=== PATIENT | male | born 1955 | race African-American/Black ===

== ENCOUNTER 2023-08-15 05:40 | Day surgery (SDC) | payer OTHER ==
[2023-08-11 12:10] VITALS: BMI 31.0
[2023-08-15] MEDS ORDERED: PROPOFOL 20 ML ONE ×2 (08:22→08:33)
[2023-08-15] MEDS ORDERED: Lidocaine 1% PF 5 ML VIAL ONE (08:33)
== END 2023-08-15 09:36 | disposition home or self-care (01) ==
LOC: CSHSDC 05:40
PROVIDERS: ATTEND Internal Medicine Gastroenterology
PROC: 0DJD8ZZ Inspection of Lower Intestinal Tract, Via Natural or Artificial Opening Endoscopic (ICD-10-PCS; principal; 2023-08-15)
DX: Z12.11 Encounter for screening for malignant neoplasm of colon (principal); K57.30 Diverticulosis of large intestine without perforation or abscess without bleeding; K64.9 Unspecified hemorrhoids; I10 Essential (primary) hypertension; E78.00 Pure hypercholesterolemia, unspecified; F32.A Depression, unspecified; E11.9 Type 2 diabetes mellitus without complications; Z86.010 Personal history of colon polyps; Z79.84 Long term (current) use of oral hypoglycemic drugs; Z79.899 Other long term (current) drug therapy; Z98.890 Other specified postprocedural states
CPT/HCPCS: J2704